=== PATIENT | female | born 1985 | race Caucasian/White ===

== ENCOUNTER 2020-11-27 11:40 | Emergency (ER) | payer MEDICARE ==
[~2020-11-27] VITALS: Ht 170.2 cm; Wt 105.0 kg
[2020-11-27 12:13] LABS: BASO # 0.1 x10^3/uL (0.0-0.2); BASO % 1 % (0-3); EOS % 0 % (0-3); HEMATOCRIT 42.3 % (36.0-47.0); HEMOGLOBIN 14.9 g/dL (12.0-15.5); LYMPH # 2.8 x10^3/uL (1.0-4.8); LYMPH % 26 % (24-48); MEAN CORPUSCULAR HEMOGLOBIN 30 pg (25-35); MEAN CORPUSCULAR HGB CONC 35 g/dL (31-37); MEAN CORPUSCULAR VOLUME 87 fL (79-100); MONO # 0.5 x10^3/uL (0.0-1.1); MONO % 5 % (0-9); NEUT # 7.1 x10^3/uL (1.8-7.7); NEUT % 67 % (31-73); PLATELET COUNT 270 x10^3/uL (140-400); RED BLOOD COUNT 4.89 x10^6/uL (3.50-5.40); RED CELL DISTRIBUTION WIDTH 13.8 % (11.5-14.5); WHITE BLOOD COUNT 10.6 x10^3/uL (4.0-11.0)
--- NOTE | 2020-11-27 12:15 | RAD ---
XR CHEST 1V History: Reason: CHEST PAIN, SHORT OF BREATH / Spl. Instructions: / History: Comparison: None. Findings: No consolidation or pleural effusion. Normal heart size. No pneumothorax. Impression: 1. No acute cardiopulmonary process. Electronically signed by: Dago Ortiz DO (11/27/2020 12:12 PM) [id number]
[2020-11-27] MEDS ORDERED: IPRATRPIUM/ALBUTEROL 0.5/2.5MG 3 ML NEBU. NEB ONE ×4 (12:30→16:30)
[2020-11-27] MEDS ORDERED: ONDANSETRON PF 4 MG/2 ML VIAL. IVP ONE (12:30)
[2020-11-27] MEDS ORDERED: HYDROmorphone 2 MG/ML VIAL IVP ONE (12:30)
[2020-11-27] MEDS ORDERED: DEXAMETHASONE SOD PHOS 20 MG/5 ML VIAL. IV ONE (12:30)
[2020-11-27] MEDS ORDERED: IV NORMAL SALINE 1000ML BAG 1,000 ML IV SCH (12:30)
[2020-11-27 12:31] LABS: CALCIUM 8.2 mg/dL (8.5-10.1); CREATININE 0.6 mg/dL (0.6-1.0); GFR 112.5; POTASSIUM 3.2 mmol/L (3.5-5.1)
[2020-11-27 12:37] LABS: ALBUMIN 3.5 g/dL (3.4-5.0); ALBUMIN/GLOBULIN RATIO 0.9 (1.0-1.7); TOTAL BILIRUBIN 0.2 mg/dL (0.2-1.0); TOTAL PROTEIN 7.2 g/dL (6.4-8.2)
--- NOTE | 2020-11-27 13:23 | PHYS DOC ---
Past Medical History Past Surgical History: No Surgical History Smoking Status: Current Every Day Smoker Alcohol Use: None General Adult EDM: Chief Complaint: SHORTNESS OF BREATH HPI: HPI: 35-year-old female past medical history of bipolar disorder, anxiety and tobacco dependence, presents to the ED medics with complaints of sudden onset shortness of breath and chest pain that started while she was walking at [facility] with her daughter who is present in the emergency department, (patient consents to his/her/their knowledge and involvement in pts' medical care). Patient describes chest pain is right-sided and "really tight, it feels like my chest is on fire and burning" stating she feels as if she cannot take a deep breath since around 10:00 this morning. Reports history of COVID in 2019. Received fentanyl 50 mcg and 324 aspirin by EMS prior to arrival. States she has not used cocaine in the past 13 years. Has a family history of coronary artery disease in her aunt and uncles. Denies any current alcohol or drug use. States symptoms worsened after she used her albuterol inhaler that was prescribed after her Covid infection (required hospitalization with oxygen, no intubation). No personal or family history of AAA, AAD, CTD (ehlos danlos or marfans), cardiac arrhythmias (need for AICD), sudden or unexplainable (under 50 years of age or with exertion), or clotting disorders. later present in ED, (patient consents to his/her/their knowledge and involvement in pts' medical care), and is concerned patient had a panic attack-states patient worries constantly. Review of Systems: Review of Systems: Constitutional: Denies fever or chills. [] Eyes: Denies change in visual acuity. [] HENT: Denies nasal congestion or sore throat. [] Respiratory: Denies cough or hemoptysis Cardiovascular: Denies syncope or edema. [] GI: Denies abdominal pain, nausea, vomiting, bloody stools or diarrhea. [] : Denies dysuria or vaginal bleeding Musculoskeletal: Denies back pain or joint pain. [] Integument: Denies rash or diaphoresis Neurologic: Denies headache, focal weakness or sensory changes. [] Endocrine: Denies polyuria or polydipsia. [] Lymphatic: Denies swollen glands. [] Psychiatric: Denies depression or anxiety. [] Heart Score: C/O Chest Pain: Yes HEART Score for Chest Pain: HEART Score for Chest Pain Response (Comments) Value History Slighlty/Non-Suspicious 0 ECG Nonspecific Repolarizatio 1 Age < 45 0 Risk Factors 1 or 2 Risk Factors 1 Troponin < Normal Limit 0 Total 2 Risk Factors: Risk Factors: DM, Current or recent (<one month) smoker, HTN, HLP, family history of CAD, obesity. Risk Scores: Score 0 - 3: 2.5% MACE over next 6 weeks - Discharge Home Score 4 - 6: 20.3% MACE over next 6 weeks - Admit for Clinical Observation Score 7 - 10: 72.7% MACE over next 6 weeks - Early Invasive Strategies Current Medications: Current Medications Medications (Trade) Dose Ordered Sig/Meeta Start Time Stop Time Status Last Admin Dose Admin Albuterol/ Ipratropium (Duoneb) 3 ml 1X ONCE 11/27/20 12:30 11/27/20 12:31 DC 11/27/20 12:28 3 ML Dexamethasone Sodium Phosphate (Decadron) 10 mg 1X ONCE 11/27/20 12:30 11/27/20 12:31 DC 11/27/20 12:27 10 MG Hydromorphone HCl (Dilaudid) 0.5 mg 1X ONCE 11/27/20 12:30 11/27/20 12:31 DC 11/27/20 12:26 0.5 MG Ondansetron HCl (Zofran) 4 mg 1X ONCE 11/27/20 12:30 11/27/20 12:31 DC 11/27/20 12:27 4 MG Sodium Chloride 1,000 ml @ 1,000 mls/hr Q1H 11/27/20 12:30 11/27/20 13:29 11/27/20 12:06 1,000 MLS/HR Allergies: Allergies: Allergies Coded Allergies Type Severity Reaction Last Updated Verified morphine Allergy Intermediate 11/27/20 Yes Physical Exam: PE: Constitutional: Well developed, well nourished, no acute distress, non-toxic appearance. HENT: Normocephalic, atraumatic, Eyes: EOMI, conjunctiva normal, no discharge. Neck: Normal range of motion, supple, Cardiovascular: S1/2 present, tachycardic on arrival Lungs & Thorax: Speaking in full sentences, bilateral equal chest rise, no tachypnea or increased work of breathing Abdomen: soft, no tenderness, Skin: Warm, dry, no erythema, no rash. [] Back: No tenderness, no CVA tenderness. [] Extremities: No tenderness, no cyanosis, no lower extremity edema Neurologic: Alert and oriented X 3, normal motor function, normal sensory function, no focal deficits noted. [] Psychologic: Affect normal, judgement normal, mood -overwhelmed and anxious Current Patient Data: Labs: Laboratory Tests Test 11/27/20 12:00 White Blood Count 10.6 x10^3/uL (4.0-11.0) Red Blood Count 4.89 x10^6/uL (3.50-5.40) Hemoglobin 14.9 g/dL (12.0-15.5) Hematocrit 42.3 % (36.0-47.0) Mean Corpuscular Volume 87 fL (79-100) Mean Corpuscular Hemoglobin 30 pg (25-35) Mean Corpuscular Hemoglobin Concent 35 g/dL (31-37) Red Cell Distribution Width 13.8 % (11.5-14.5) Platelet Count 270 x10^3/uL (140-400) Neutrophils (%) (Auto) 67 % (31-73) Lymphocytes (%) (Auto) 26 % (24-48) Monocytes (%) (Auto) 5 % (0-9) Eosinophils (%) (Auto) 0 % (0-3) Basophils (%) (Auto) 1 % (0-3) Neutrophils # (Auto) 7.1 x10^3/uL (1.8-7.7) Lymphocytes # (Auto) 2.8 x10^3/uL (1.0-4.8) Monocytes # (Auto) 0.5 x10^3/uL (0.0-1.1) Eosinophils # (Auto) 0.0 x10^3/uL (0.0-0.7) Basophils # (Auto) 0.1 x10^3/uL (0.0-0.2) D-Dimer (Ghazala) 0.32 ug/mlFEU (0.00-0.50) Sodium Level 138 mmol/L (136-145) Potassium Level 3.2 mmol/L (3.5-5.1) L Chloride Level 103 mmol/L (98-107) Carbon Dioxide Level 21 mmol/L (21-32) Anion Gap 14 (6-14) Blood Urea Nitrogen 5 mg/dL (7-20) L Creatinine 0.6 mg/dL (0.6-1.0) Estimated GFR (Cockcroft-Gault) 112.5 BUN/Creatinine Ratio 8 (6-20) Glucose Level 107 mg/dL (70-99) H Calcium Level 8.2 mg/dL (8.5-10.1) L Magnesium Level 2.0 mg/dL (1.8-2.4) Total Bilirubin 0.2 mg/dL (0.2-1.0) Aspartate Amino Transferase (AST) 14 U/L (15-37) L Alanine Aminotransferase (ALT) 23 U/L (14-59) Alkaline Phosphatase 136 U/L (46-116) H Troponin I Quantitative < 0.017 ng/mL (0.000-0.055) CI-Yrm-S-Type Natriuretic Peptide 28 pg/mL (0-124) Total Protein 7.2 g/dL (6.4-8.2) Albumin 3.5 g/dL (3.4-5.0) Albumin/Globulin Ratio 0.9 (1.0-1.7) L Lipase 80 U/L (73-393) Laboratory Tests 11/27/20 12:00 Laboratory Tests 11/27/20 12:00 Vital Signs: Vital Signs Date Time Temp Pulse Resp B/P (MAP) Pulse Ox O2 Delivery O2 Flow Rate FiO2 11/27/20 12:30 98 Room Air 11/27/20 11:56 98.1 104 18 136/61 (86) 98.1 EKG: EKG: Sinus tachycardia 100 bpm, no axis deviation, normal intervals, T wave inversion 1, 2, 3, aVF, V3 through V6, no ST elevation or ST depression sinus rhythm 78 bpm, NAD, normal intervals, TWI III, V3-6, no ST elevation or ST depression Radiology/Procedures: Radiology/Procedures: IMAGING REPORT Signed PATIENT: MARIAN RAMAN ACCOUNT: [id number] : 1985 LOCATION: ER AGE: 35 SEX: F EXAM STATUS: PRE ER ORD. PHYSICIAN: THEODORA SANTIAGO DO REASON: CHEST PAIN, SHORT OF BREATH PROCEDURE: PORTABLE CHEST 1V XR CHEST 1V History: Reason: CHEST PAIN, SHORT OF BREATH / Spl. Instructions: / History: Comparison: None. Findings: No consolidation or pleural effusion. Normal heart size. No pneumothorax. Impression: 1. No acute cardiopulmonary process. Electronically signed by: Dago Ortiz DO (11/27/2020 12:12 PM) [id number] DICTATED and SIGNED BY: DAGO ORTIZ DO DATE: 11/27/20 [id number] Course & Med Decision Making: Course & Med Decision Making Pertinent Labs and Imaging studies reviewed. (See chart for details) Concern for sudden onset shortness of breath and chest pain described as a burning sensation with audible wheezing in a smoker (no formal copd diagnosis). Patient was treated with steroids and duonebs in the emergency department. Unable to PERC patient out given heart rate on arrival. D-dimer within normal limits. 2 troponins negative. Patient does have inferior lateral T wave inversions on EKG that are not changed on repeat ekg. Heart score 2. On reevaluation patient's breathing has improved with no further wheezing and states pain has decreased/nearly resolved. I suspect patient's pain is more related to early onset COPD given improvement with steroids and breathing treatments (no initial relief with albuterol but this changed-after duonebs pts' cp and dyspnea resolved). Will discharge home with strict ED return precaution s were given for syncope, neurologic deficits, chest tightness/heaviness/pressure, nausea or vomiting. Encouraged urgent outpatient follow-up with PMD and cardiology for nonemergent evaluation. Life-threatening processes were considered but are low suspicion at this time, given history, physical exam and ED workup. Pt was educated on all prescription medications and adverse effects. All patient's questions were answered and pt was stable at time of discharge. Life/limb-threatening differential includes but is not limited to, acute myocardial infarction, aortic dissection, congestive heart failure, esophageal injury including rupture, surgical abdomen, arrhythmia, cardiomyopathy, myocarditis, pericarditis, peptic ulcer disease, pneumomediastinum, pneumonia, pneumothorax, pulmonary embolus, unstable angina, rib fracture, contusion, pericardial tamponade or effusion, traumatic injury including mediastinal hemorrhage or hematoma, or pulmonary contusion. I have spoken with the patient and/or caregivers. I explained the patient's condition, diagnoses and treatment plan based on the information available to me at this time. I have answered the patient and/or caregiver's questions and addressed any concerns. The patient and/or caregivers have a good understanding of patient's diagnosis, condition and treatment plan as can be expected at this point. Vital signs have been stable. Patient's condition is stable and appropriate for discharge from the emergency department. Patient will pursue further outpatient evaluation with primary care physician or other designated or consulting physician as outlined in the discharge instructions. The patient and/or caregivers are agreeable to this plan of care and follow-up instructions have been explained in detail. The patient and/or caregivers have received these instructions in written form and have expressed an understanding of the discharge instructions. The patient and/or caregivers are aware that any significant change of condition or worsening of symptoms should prompt immediate return to this or the closest emergency department or call to 911. Mylene Disclaimer: Mylene Disclaimer: This electronic medical record was generated, in whole or in part, using a voice recognition dictation system. Departure Departure Impression: Primary Impression: Dyspnea Additional Impression: Chest pain Disposition: 01 HOME / SELF CARE / HOMELESS Condition: STABLE Referrals: THEODORA CAT (PCP) Follow-up with your primary care physician in 24 to 48 hours OR FOLLOW UP WITH FAMILY MEDICINE: [address] [facility] [place] [address] Patient Instructions: Chest Pain (Nonspecific), Chronic Obstructive Pulmonary Disease Additional Instructions: FOLLOW UP WITH CARDIOLOGY: FOR DEFINITIVE MANAGEMENT of chest pain given T wave inversions on EKG [facility] [address] [facility] [address] [place] [address] FOLLOW UP WITH PULMONOLOGY: FOR DEFINITIVE MANAGEMENT of tobacco use and possible early COPD [facility] [address] [facility] [address] [place] [address] EMERGENCY DEPARTMENT GENERAL DISCHARGE INSTRUCTIONS Thank you for coming to [facility] Emergency Department (ED) today and trusting us with you care. We trust that you had a positive experience in our Emergency Department. If you wish to speak to the department management, you may call the Director at [phone]. YOUR FOLLOW UP INSTRUCTIONS ARE FOLLOWS: 1. Do you have a private Doctor? If you do not have a private doctor, please ask for a resource list of physicians or clinics that may be able to assist you with follow up care. 2. The Emergency Physicain has interpreted your x-rays. The X-Ray specialist will also review them. If there is a change in the findings, you will be notified in 48 hours when at all possible. 3. A lab test or culture has been done, your results will be reviewed and you will be notified if you need a change in treatment. ADDITIONAL INSTRUCTIONS AND INFORMATION: 1. Your care today has been supervised by a physician who is specially trained in emergency care. Many problems require more than one evaluation for a complete diagnosis and treatment. We recommend that you schedule your follow up appointment as recommended to ensure complete treatment of you illness or injury. If you are unable to obtain follow up care and continue to have a problem, or if your condition worsens, we recommend that you return to the ED. 2. We are not able to safely determine your condition over the phone nor are we able to give sound medical advice over the phone. For these safety reasons, if you call for medical advice we will ask you to come to the ED for further evaluation. 3. If you have any questions regarding these discharge instructions please call the ED at [phone]. SAFETY INFORMATION: In the interest of safety, wellness, and injury prevention; we encourage you to wear your sealbelt, if you smoke; quite smoking, and we encourage family to use a protective helmet for bicycling and other sporting events that present an increased risk for head injury. IF YOUR SYMPTOMS WORSEN OR NEW SYMPTOMS DEVELOP, OR YOU HAVE CONCERNS ABOUT YOUR CONDITION; OR IF YOUR CONDITION WORSENS WHILE YOU ARE WAITING FOR YOUR FOLLOW UP APPOINTMENT; EITHER CONTACT YOUR PRIMARY CARE DOCTOR, THE PHYSICIAN WHOSE NAME AND NUMBER YOU WERE GIVEN, OR RETURN TO THE ED IMMEDIATELY. Scripts Albuterol Sulfate (VENTOLIN HFA INHALER) 18 Gm Hfa.aer.ad 2 PUFF INH QID for FOR ASTHMA, #1 INHALER 0 Refills Prov: THEODORA SANTIAGO DO 11/27/20 Fluticasone Propionate (FLOVENT 44MCG HFA) 10.6 Gm Aer.w.adap 2 PUFF IH BID for 30 Days, #1 INHALER 0 Refills Prov: THEODORA SANTIAGO DO 11/27/20 Methylprednisolone (MEDROL) 4 Mg Tab.ds.pk 1 PKG PO UD for inflammation, #1 PKG Prov: THEODORA SANTIAGO DO 11/27/20 THEODORA SANTIAGO DO Nov 27, 2020 13:23
[2020-11-27] MEDS ORDERED: KETOROLAC 15 MG/ML VIAL. IVP ONE (15:45)
--- NOTE | 2020-11-27 16:16 | EKG ---
[facility] [address] [place] [address] Test Date: 2020-11-27 Test Time: 16:04:29 Pat Name: MARIAN RAMAN Department: Room: Gender: F Hedis Analyst: : 1985 Requested By: THEODORA SANTIAGO Order Number: [id number] Reading MD: Measurements Intervals [place] Rate: 78 P: 45 NE: 132 QRS: 45 QRSD: 84 T: 138 QT: 398 QTc: 457 Interpretive Statements SINUS RHYTHM QRS(T) CONTOUR ABNORMALITY CONSIDER ANTEROSEPTAL MYOCARDIAL DAMAGE T ABNORMALITY IN ANTERIOR LEADS ABNORMAL ECG RI6.01 No previous ECG available for comparison
[2020-11-27 16:50] LABS: PREG TEST PT QUAL NEGATIVE (NEG)
[2020-11-27] MEDS ORDERED: VENTOLIN HFA18 GM INH (17:20)
[2020-11-27] MEDS ORDERED: FLUT10.6 IH (17:20)
[2020-11-27] MEDS ORDERED: METH4TAB2 PO (17:20)
[2020-11-27 18:14] VITALS: BP 110/56
== END 2020-11-27 18:25 | disposition home or self-care (01) ==
LOC: MERGE 11:40 → ER 11:40
DX: R06.02 Shortness of breath (principal); R07.89 Other chest pain; F17.200 Nicotine dependence, unspecified, uncomplicated; Z88.5 Allergy status to narcotic agent
CPT/HCPCS: 36415; 71045; 80053; 83690; 83735; 83880; 84484; 84703; 85025; 85379; 93005; 94640; 96361; 96374; 96375; 99285; J1100; J1170; J1885; J2405; J7030

== ENCOUNTER → 2020-12-17 | Outpatient (CLI) | payer MEDICARE ==
[2020-11-27 18:14] VITALS: BP 110/56
[~2020-12-17] MED LIST: FLUT10.6 IH; METH4TAB2 PO; VENTOLIN HFA18 GM INH
--- NOTE | 2020-12-17 17:15 | CARD ---
MR#: [id number] Date of Study: 12/17/2020 Ordering Physician: LUCRECIA MONK, Referring Physician: LUCRECIA MONK, Tech: Elsie Martinez [facility] APPROVED REPORT EXAM: Two-dimensional and M-mode echocardiogram with Doppler and color Doppler. Other Information Quality : AverageHR: 94bpm INDICATION Chest Pain RISK FACTORS Smoking 2D DIMENSIONS RVDd3.2 (2.9-3.5cm)Left Atrium(2D)2.8 (1.6-4.0cm) IVSd1.1 (0.7-1.1cm)Aortic Root(2D)2.8 (2.0-3.7cm) LVDd4.6 (3.9-5.9cm)LVOT Diameter2.1 (1.8-2.4cm) PWd0.8 (0.7-1.1cm)LVDs3.1 (2.5-4.0cm) FS (%) 33.1 %SV59.9 ml LVEF(%)61.8 (>50%) Aortic Valve AoV Peak Adama.134.0cm/sAoV VTI24.9cm AO Peak GR.7.2mmHgLVOT Peak Adama.115.2cm/s LVOT VTI 21.48cmAO Mean GR.4mmHg GERALD (VMAX)2.66jk4RVQ (VTI)2.93cm2 Mitral Valve MV E Fcczmnrf66.8cm/sMV DECEL PCWB510qo MV A Upbshnnz13.5cm/sMV E Mean Gr.2mmHg MV FRW67lkB/A Ratio0.8 MVA (PHT)4.14cm2 TDI E/Lateral E'3.0E/Medial E'3.6 Pulmonary Valve PV Peak Evqxfvtn79.8cm/sPV Peak Grad.4mmHg Pulmonary Vein S1 Lvmbbgdt27.7cm/sD2 Jdrezkfl56.9cm/s PVa [id number] LEFT VENTRICLE The left ventricle is normal size. There is normal left ventricular wall thickness. The left ventricu lar systolic function is normal and the ejection fraction is within normal range. EF 50-55% Septal mo tion consistent with conduction abnormality. Otherwise, there is grossly normal wall motion. Transmit ral Doppler flow pattern is Grade I-abnormal relaxation pattern. RIGHT VENTRICLE The right ventricle is normal size. There is normal right ventricular wall thickness. The right ventr icular systolic function is normal. ATRIA The left atrium size is normal. The right atrium size is normal. The interatrial septum is intact wit h no evidence for an atrial septal defect or patent foramen ovale as noted on 2-D or Doppler imaging. AORTIC VALVE The aortic valve is grossly normal in structure and function. Doppler and Color Flow revealed no sign ificant aortic regurgitation. There is no significant aortic valvular stenosis. Calculated aortic carolee ve area is 2.87 cm2 with maximum pressure gradient of 9 mmHg and mean pressure gradient of 5 mmHg. MITRAL VALVE The mitral valve is normal in structure and function. There is no evidence of mitral valve prolapse. There is no mitral valve stenosis. Doppler and Color-flow revealed trace mitral regurgitation. TRICUSPID VALVE The tricuspid valve is normal in structure and function. Doppler and Color Flow revealed trace tricus pid regurgitation. There is no tricuspid valve stenosis. PULMONIC VALVE The pulmonic valve is not well visualized. Doppler and Color Flow revealed trace pulmonic valvular re gurgitation. There is no pulmonic valvular stenosis. GREAT VESSELS The aortic root is normal in size. The IVC is normal in size and collapses >50% with inspiration. PERICARDIAL EFFUSION There is no evidence of significant pericardial effusion. Critical Notification Critical Value: No <Conclusion> The left ventricular systolic function is normal and the ejection fraction is within normal range. EF 50-55% Septal motion consistent with conduction abnormality. Otherwise, there is grossly normal wall motion. Signed by : Joshua Elias, Electronically Approved : 12/17/2020 17:14:50
== END ==
LOC: ECHO 12:33
PROVIDERS: ATTEND Internal Medicine Cardiovascular Disease
DX: R07.9 Chest pain, unspecified (principal)
CPT/HCPCS: 93306